=== PATIENT | female | born 1965 | race American Indian/Alaskan Native ===

== ENCOUNTER 2016-12-17 07:13 | Emergency (ER) | payer SELFPAY ==
[2016-12-17] MEDS ORDERED: DELTASONE PO ONE (07:50)
[2016-12-17 16:08] VITALS: BP 132/66
[2016-12-17] MEDS ORDERED: PEPCID PO ONE (16:24)
--- NOTE | 2016-12-17 16:30 | Emergency Department Report ---
ED General Adult HPI - General Chief complaint: Allergic Reaction Stated complaint: BEE STING Time Seen by Provider: 12/17/16 16:15 Source: patient Mode of arrival: Ambulatory Limitations: No Limitations - History of Present Illness Initial comments: PT states on Tuesday, she was working on her yard and she was stung at least 7 times by yellow jackets. PT states the went under her sweatpants and stung her legs multiple times. She was also stung on the R arm and L buttock. PT states she started to develop hives and she has hx of allergies, so she took her Claritin and her rash improved. PT states that she had hives again on Tuesday and they resolved with Claritin. PT states on Tue, she felt like the hives were worsening so she switched from Claritin to Benadryl. PT states that the hives still returned and this morning, she thought she should seek medical treatment. MD Complaint: urticaria Onset/Timin -: Gradual, days(s) Location: buttocks, left, right, upper extremity, lower extremity Severity scale (0 -10): 0 Improves with: medication Associated Symptoms: denies: chest pain, cough, nausea/vomiting, shortness of breath, syncope - Related Data Home Medications Medication Instructions Recorded Confirmed Last Taken Cetirizine HCl [Zyrtec] 10 mg PO DAILY 01/25/14 02/01/14 01/25/14 09:00 Previous Rx's Medication Instructions Recorded Last Taken Type HYDROcodone/APAP 5-325 [[place] 2 each PO Q6H PRN #20 tablet 03/24/15 Unknown Rx 5-325 mg TAB] Ibuprofen [Motrin] 600 mg PO Q8H PRN #40 tablet 03/24/15 Unknown Rx Cyclobenzaprine [Flexeril 10 MG 10 mg PO TID PRN #15 tablet 11/07/15 Unknown Rx TAB] Diclofenac Dr [Voltaren Dr] 75 mg PO BID #20 tablet 11/07/15 Unknown Rx Famotidine [Pepcid] 20 mg PO BID #14 tablet 12/17/16 Unknown Rx hydrOXYzine PAMOATE [Vistaril] 25 mg PO Q6HR PRN #12 capsule 12/17/16 Unknown Rx methylPREDNISolone [Medrol] 4 mg PO DAILY #1 tab.ds.pk 12/17/16 Unknown Rx Allergies Allergy/AdvReac Type Severity Reaction Status Date / Time Penicillins Allergy Unknown Verified 10/27/13 13:24 ED Review of Systems ROS: Stated complaint: BEE STING Other details as noted in HPI Comment: All other systems reviewed and negative Constitutional: denies: chills, fever Respiratory: denies: shortness of breath, wheezing Cardiovascular: denies: chest pain Skin: rash, pruritus ED Past Medical Hx - Past Medical History Previous Medical History?: Yes Hx Congestive Heart Failure: No Hx Diabetes: No Hx Asthma: No Hx COPD: No - Surgical History Past Surgical History?: Yes Additional Surgical History: hysterectomy 2013 - Social History Smoking Status: Never Smoker Substance Use Type: None - Medications Home Medications: Home Medications Medication Instructions Recorded Confirmed Last Taken Type Cetirizine HCl [Zyrtec] 10 mg PO DAILY 01/25/14 02/01/14 01/25/14 09:00 History HYDROcodone/APAP 5-325 [[place] 2 each PO Q6H PRN #20 tablet 03/24/15 Unknown Rx 5-325 mg TAB] Ibuprofen [Motrin] 600 mg PO Q8H PRN #40 tablet 03/24/15 Unknown Rx Cyclobenzaprine [Flexeril 10 MG 10 mg PO TID PRN #15 tablet 11/07/15 Unknown Rx TAB] Diclofenac Dr [Voltaren Dr] 75 mg PO BID #20 tablet 11/07/15 Unknown Rx Famotidine [Pepcid] 20 mg PO BID #14 tablet 12/17/16 Unknown Rx hydrOXYzine PAMOATE [Vistaril] 25 mg PO Q6HR PRN #12 capsule 12/17/16 Unknown Rx methylPREDNISolone [Medrol] 4 mg PO DAILY #1 tab.ds.pk 12/17/16 Unknown Rx ED Physical Exam - General Limitations: No Limitations General appearance: alert, in no apparent distress - Head Head exam: Present: atraumatic, normocephalic, normal inspection - Eye Eye exam: Present: normal appearance, PERRL. Absent: conjunctival injection - ENT ENT exam: Present: normal exam, normal external ear exam - Neck Neck exam: Present: normal inspection, full ROM - Respiratory Respiratory exam: Present: normal lung sounds bilaterally. Absent: respiratory distress, wheezes, rhonchi, stridor - Cardiovascular Cardiovascular Exam: Present: regular rate, normal rhythm, normal heart sounds - GI/Abdominal GI/Abdominal exam: Present: soft. Absent: tenderness - Extremities Exam Extremities exam: Present: other (urticaria noted, no signs of cellulitis to pt' s bite sites ). Absent: pedal edema - Back Exam Back exam: Present: normal inspection. Absent: full ROM, tenderness - Neurological Exam Neurological exam: Present: alert, oriented X3 - Psychiatric Psychiatric exam: Present: normal affect, normal mood - Skin Skin exam: Present: warm, dry, intact, urticaria. Absent: normal color - Expanded Skin Exam Expanded Distribution of rash: RUE, LUE, RLE, LLE Description of rash: Present: urticarial ED Course Vital Signs 12/17/16 12/17/16 07:46 16:07 Temperature 98.4 F Pulse Rate 65 73 Respiratory 16 18 Rate Blood Pressure 142/94 Blood Pressure 132/66 [Left] O2 Sat by Pulse 100 98 Oximetry - Reevaluation(s) Reevaluation #1: 12/17/16 16:32 PT does report improvement in rash since being treated with Prednisone while in ED. PT aware of dx and plan of care. PT has no questions at this time. - Pulse Oximetry Interpretation Digit-Finger Initial Pulse Oximetry Readin Actions Taken: none ED Medical Decision Making - Differential Diagnosis celluitis, local reaction, urticaria Critical Care Time: No Critical care attestation.: If time is entered above; I have spent that time in minutes in the direct care of this critically ill patient, excluding procedure time. ED Disposition Clinical Impression: Urticaria Disposition: DC-01 TO HOME OR SELFCARE Is pt being admited?: No Does the pt Need Aspirin: No Condition: Stable Instructions: Urticaria (ED), Insect Bite or Sting (ED) Prescriptions: Famotidine [Pepcid] 20 mg PO BID #14 tablet hydrOXYzine PAMOATE [Vistaril] 25 mg PO Q6HR PRN #12 capsule PRN Reason: Itching methylPREDNISolone [Medrol] 4 mg PO DAILY #1 tab.ds.pk Referrals: PRIMARY CARE,MD [Primary Care Provider] - 3-5 Days SHERITA COMER MD [Staff Physician] - 3-5 Days [facility] [Outside] - 3-5 Days Forms: Work/School Release Form(ED) Time of Disposition: 16:34
== END 2016-12-17 16:40 | disposition home or self-care (01) ==
LOC: ED 07:13
DX: L50.9 Urticaria, unspecified (principal); Z88.0 Allergy status to penicillin
CPT/HCPCS: 99282; J7512

== ENCOUNTER 2017-06-02 19:49 | Emergency (ER) | payer BC, OTHER ==
[2017-06-03] MEDS ORDERED: MOTRIN PO ONE (01:07)
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
[2017-06-03 04:43] VITALS: BP 138/78
== END 2017-06-03 03:45 | disposition home or self-care (01) ==
LOC: ED 19:49
DX: S39.012A Strain of muscle, fascia and tendon of lower back, initial encounter (principal); S13.4XXA Sprain of ligaments of cervical spine, initial encounter; M25.561 Pain in right knee; Z88.0 Allergy status to penicillin; V89.2XXA Person injured in unspecified motor-vehicle accident, traffic, initial encounter; Y93.89 Activity, other specified; Y92.89 Other specified places as the place of occurrence of the external cause; Y99.8 Other external cause status
CPT/HCPCS: 72040; 72100; 99283

== ENCOUNTER 2019-07-17 16:46 | Emergency (ER) | payer BC, OTHER ==
[2019-07-17] MEDS ORDERED: IBUPROFEN 800 MG TAB PO ONE (18:58)
[2019-07-17 19:01] VITALS: BP 130/69
--- NOTE | 2019-07-17 19:04 | Event Note ---
ED Screening Note ED Screening Note: patient complains of right thumb pain that started last Tuesday. Pain at base of thumb. on exam base of thumb appears deformed. Thumb reduced on physical exam. Discussed d/c and follow up but the patient declined and insisted on having an xray done. Xray ordered This initial assessment/diagnostic orders/clinical plan/treatment(s) is/are subject to change based on patients health status, clinical progression and re- assessment by fellow clinical providers in the ED. Further treatment and workup at subsequent clinical providers discretion. Patient/guardian urged not to elope from the ED as their condition may be serious if not clinically assessed and managed. Initial orders include:
--- NOTE | 2019-07-17 19:38 | XRay Report ---
LEFT THUMB PAIN INDICATION: left thumb pain reduced in ed. COMPARISON: No relevant prior imaging study available. FINDINGS: No fracture is seen. Alignment is within normal limits. No foreign bodies. IMPRESSION: 1. No acute findings. Signer Name: Surinder Toscano MD Signed: 07/17/2019 7:33 PM Workstation Name: [id number]
--- NOTE | 2019-07-17 21:21 | Emergency Department Report ---
Upper Extremity - HPI Chief Complaint: Extremity Injury, Upper Stated Complaint: CYST ON LT THUMB Time Seen by Provider: 07/17/19 19:04 Upper Extremity: Left Thumb Occurred When: 4 Days Mechanism: Other (no known injury) Severity: moderate Symptoms: Yes Pain with Movement, Yes Deformity, No Limited Range of Movement, No Numbness, No Weakness, No Swelling, No Bruising/Ecchymosis, No Laceration or Abrasion Other History: 53-year-old -Citizen Of [place] female presents with complaints of left thumb pain and deformity 1 week. She denies any injury to the finger. She rates her current pain as 0/10 in severity at rest. Screening note by Dr. Salguero states there was a deformity present at the first MCP joint which was re duced by Dr. Salguero. ED Review of Systems ROS: Stated complaint: CYST ON LT THUMB Other details as noted in HPI Comment: All other systems reviewed and negative Musculoskeletal: arthralgia ED Past Medical Hx - Past Medical History Previous Medical History?: No Hx Congestive Heart Failure: No Hx Diabetes: No Hx Asthma: No Hx COPD: No - Surgical History Past Surgical History?: Yes Additional Surgical History: hysterectomy 2013 - Social History Smoking Status: Never Smoker Substance Use Type: None - Medications Home Medications: Home Medications Medication Instructions Recorded Confirmed Last Taken Type Cetirizine HCl [Zyrtec] 10 mg PO DAILY 01/25/14 02/01/14 01/25/14 09:00 History HYDROcodone/APAP 5-325 [[place] 2 each PO Q6H PRN #20 tablet 03/24/15 Unknown Rx 5-325 mg TAB] Cyclobenzaprine [Flexeril 10 MG 10 mg PO TID PRN #15 tablet 11/07/15 Unknown Rx TAB] Diclofenac Dr [Jenny Robb] 75 mg PO BID #20 tablet 11/07/15 Unknown Rx Famotidine [Pepcid] 20 mg PO BID #14 tablet 12/17/16 Unknown Rx hydrOXYzine PAMOATE [Vistaril] 25 mg PO Q6HR PRN #12 capsule 12/17/16 Unknown Rx methylPREDNISolone [Medrol] 4 mg PO DAILY #1 tab.ds.pk 12/17/16 Unknown Rx Cyclobenzaprine [Flexeril] 10 mg PO QHS PRN #5 tablet 06/03/17 Unknown Rx Ibuprofen [Motrin] 600 mg PO Q8H PRN #30 tablet 06/03/17 Unknown Rx Ibuprofen [Motrin 600 MG tab] 600 mg PO Q8H PRN #21 tablet 07/17/19 Unknown Rx Upper Extremity Exam - Exam General: Vital signs noted. No distress. Alert and acting appropriately. Hand: Yes Hand Tenderness (tenderness noted to palpation of the left first MCP joint ), Yes Normal ROM in Digit(s), No Hand Deformity, No Digit Tenderness, No Digit(s) Deformity, No Tendon Dysfunction CMS Exam: Yes Normal Capillary Refill, Yes Normal Distal Sensation, No Broken Skin (no erythema noted) ED Course Vital Signs 07/17/19 18:55 Temperature 97.7 F Pulse Rate 64 Respiratory 18 Rate Blood Pressure 130/69 O2 Sat by Pulse 100 Oximetry ED Medical Decision Making - Radiology Data Radiology results: report reviewed Ordering Physician: PAWEL SALGUERO MD Date of Service: 07/17/19 Procedure(s): XR finger(s) 2+V LT Accession Number(s): [id number] cc: PAWEL SALGUERO MD Fluoro Time In Minutes: LEFT THUMB PAIN INDICATION: left thumb pain reduced in ed. COMPARISON: No relevant prior imaging study available. FINDINGS: No fracture is seen. Alignment is within normal limits. No foreign bodies. IMPRESSION: 1. No acute findings. - Medical Decision Making 53-year-old -Citizen Of [place] female presents with complaints of left thumb pain and deformity 1 week. She denies any injury to the finger. She rates her current pain as 0/10 in severity at rest. Screening note by Dr. Salguero states there was a deformity present at the first MCP joint which was reduced by Dr. Salguero. X-ray is negative for any abnormality. Splint applied to the thumb. Patient stable for discharge home. Recommend follow-up with orthopedics. Strict return precautions were discussed in detail with patient verbalizes understanding. Critical care attestation.: If time is entered above; I have spent that time in minutes in the direct care of this critically ill patient, excluding procedure time. ED Disposition Clinical Impression: Dislocation of left thumb Qualifiers: Encounter type: initial encounter Qualified Code(s): S63.105A - Unspecified dislocation of left thumb, initial encounter Disposition: TO HOME OR SELFCARE Is pt being admited?: No Condition: Stable Instructions: Finger Dislocation (ED), Splint Care (ED) Prescriptions: Ibuprofen [Motrin 600 MG tab] 600 mg PO Q8H PRN #21 tablet PRN Reason: Pain Referrals: CHANNING DOS SANTOS MD [Staff Physician] - 3-5 Days
== END 2019-07-17 22:10 | disposition home or self-care (01) ==
LOC: ED 16:46
DX: S63.105A Unspecified dislocation of left thumb, initial encounter (principal); Z88.0 Allergy status to penicillin; Z90.710 Acquired absence of both cervix and uterus; Z79.899 Other long term (current) drug therapy; X58.XXXA Exposure to other specified factors, initial encounter; Y93.89 Activity, other specified; Y92.89 Other specified places as the place of occurrence of the external cause; Y99.8 Other external cause status